=== PATIENT | female | born 1950 | race Hispanic/Latino ===

== ENCOUNTER 2024-07-07 20:53 | Inpatient (IN) | payer MEDICARE, OTHER ==
[2024-07-07 21:32] LABS: Acetaminophen Less than 10 mcg/mL (Less than 10); Alcohol Less than 10.0 mg/dL (Less than 10); Salicylate Less than 8.0 mg/dL (Less than 8.0)
[2024-07-07 21:37] LABS: Troponin I Less than 0.010 ng/mL (< 0.028)
[2024-07-07 21:38] LABS: #Basophils 0.03 10x3/uL (0.0-0.2); %Basophils 0.3 % (0.0-1.0); %Eosinophils 3.4 % (0.0-10.0); %Monocytes 6.2 % (0.0-10.0); %Neutrophils 72.2 % (42.0-75.0); Hematocrit 27.7 % (36.0-47.0); Mean Corpuscular HGB CONC 32.5 g/dL (32.0-36.0); Mean Corpuscular Hemoglobin 34.1 pg (27.0-31.0); Mean Corpuscular Volume 104.9 fL (78.0-98.0); Platelet Count 269 10x3/uL (130-400); RBC Distribution Width 13.1 % (11.5-14.5); Red Blood Cell (RBC) Count 2.64 mill/uL (4.20-5.40)
[2024-07-07 21:42] LABS: INR-International Normal Ratio 1.7
[2024-07-07 21:43] LABS: PTT 39.8 sec (22.9-36.1)
[2024-07-07 21:54] LABS: ALT (SGPT) 16 U/L (8-55); AST (SGOT) 31 U/L (5-34); Albumin 3.2 g/dL (3.4-4.8); Alkaline Phosphatase 122 U/L (40-110); Anion Gap 15 mmol/L (10-20); BUN (Urea Nitrogen) 16 mg/dL (9.8-20.1); Bilirubin, Total 0.7 mg/dL (0.2-1.2); Calc. Creatinine Clearance 0 mL/min (70-130); Calcium 9.1 mg/dL (7.8-10.44); Carbon Dioxide 27 mmol/L (23-31); Chloride 99 mmol/L (98-107); Estimated GFR 58; Globulin 3.1 g/dL (2.4-3.5); Glucose 145 mg/dL (83-110); Potassium 4.1 mmol/L (3.5-5.1); Protein, Total 6.3 g/dL (5.8-8.1); Sodium 137 mmol/L (136-145)
[2024-07-08 00:10] LABS: Bacteria/HPF 1+ HPF (None Seen); Bilirubin Negative (Negative); Blood, Urine Trace (Negative); CAUTI Indications for Culture Alt mental st,lethar; Clarity Turbid (Clear); Glucose, Urine (Dipstick) Normal (Negative); Ketone, Urine Negative (Negative); Leukocyte 500 Leu/uL (Negative); Nitrite Negative (Negative); Protein, Urine (Dipstick) 10 mg/dL (Neg-Trace); Renal Epithelial 0-3 HPF (None Seen); Specific Gravity, Urine 1.013 (1.002-1.036); Urobilinogen Normal mg/dL (Less than 2); WBC/HPF Greater than 50 HPF (0-3)
[2024-07-08 00:11] LABS: Urine Culture Reflex Yes Yes
[2024-07-08] MEDS ORDERED: cefTRIAXone (ROCEPHIN) 2 GM VIAL ONE (00:23)
[2024-07-08] MEDS ORDERED: Sodium Chloride 0.9% 100 ML ONE (00:23)
[2024-07-08] MEDS ORDERED: Glucagon 1 MG/ML KIT IM PRN (03:26)
[2024-07-08] MEDS ORDERED: Insulin Lispro 100 UNIT/ML 10 ML VIAL SC PRN ×2 (03:26)
[2024-07-08] MEDS ORDERED: Dextrose 50% Abboject 50 ML SYRINGE SLOW IVP PRN (03:26)
[2024-07-08] MEDS ORDERED: Dextrose 5% in Water 1,000 ML IV PRN (03:26)
[2024-07-08] MEDS ORDERED: Calcium Carbonate 500 MG ChewTAB PO PRN (03:36)
[2024-07-08] MEDS ORDERED: Polyethylene Glycol 3350 17 GM Packet PO PRN (03:36)
[2024-07-08] MEDS ORDERED: oxyCODONE 5 MG TAB PO PRN (03:36)
[2024-07-08] MEDS ORDERED: Trospium 20 MG TAB PO PRN (03:43)
[2024-07-08] MEDS: Acetaminophen 325 MG TAB PO SCH (06:07)
[2024-07-08 06:17] VITALS: BMI 31.8
[2024-07-08] MEDS: Cholecalciferol (Vitamin D3) 400 UNITS TAB PO SCH (08:40)
[2024-07-08] MEDS: Pioglitazone HCl 15 MG TAB PO SCH (08:40)
[2024-07-08] MEDS: Montelukast Sodium 10 mg Tablet PO SCH (08:41)
[2024-07-08] MEDS: Losartan 25 MG TAB PO SCH (08:41)
[2024-07-08] MEDS: Metoprolol Tartrate 25 MG TAB PO SCH (08:41)
[2024-07-08] MEDS: Famotidine 20 MG TAB PO SCH (08:42)
[2024-07-08] MEDS: Apixaban 5 MG TAB PO SCH (08:42)
[2024-07-08] MEDS: Amlodipine 5 MG TAB PO SCH (08:43)
[2024-07-08] MEDS ORDERED: Enoxaparin 40 MG (0.4 mL) SYRINGE SC SCH (09:00)
[2024-07-08] MEDS: Methocarbamol 500 MG TAB PO PRN (10:14)
[2024-07-08] MEDS: Bisacodyl 5 MG TAB PO PRN (10:14)
[2024-07-08] MEDS: Atorvastatin Calcium 10 MG TAB PO SCH (20:25)
[2024-07-09] MEDS ORDERED: cefTRIAXone\\ROCEPHIN 1 GM in Sodium Chloride 0.9% 100 ML IVPB SCH (00:15)
[2024-07-09] MEDS: Lactated Ringer's 1,000 ML IV SCH (00:55)
[2024-07-09 06:01] LABS: Thyroid Stimulating Hormone 127.0173 uIU/mL (0.35-4.94)
[2024-07-09 10:20] LABS: Free T4 (Free Thyroxine) Less than 0.42 ng/dL (0.70-1.48); T4 Less than 2.00 ug/dL (4.87-11.72)
[2024-07-09] MEDS: Levothyroxine Sodium 112 MCG TAB PO SCH (12:07)
[2024-07-09 13:14] VITALS: BMI 31.8
[2024-07-09] MEDS: Melatonin 3 MG TAB PO SCH (21:09)
[2024-07-10] MEDS: Levothyroxine Sodium 112 MCG TAB PO SCH (05:07)
[2024-07-10 05:10] LABS: #Basophils 0.04 10x3/uL (0.0-0.2); %Basophils 0.3 % (0.0-1.0); %Lymphocytes 16.4 % (21.0-51.0); %Monocytes 8.7 % (0.0-10.0); %Neutrophils 70.9 % (42.0-75.0); Hematocrit 27.2 % (36.0-47.0); Hemoglobin 9.1 g/dL (12.0-16.0); Mean Corpuscular HGB CONC 33.5 g/dL (32.0-36.0); Mean Corpuscular Hemoglobin 34.5 pg (27.0-31.0); Mean Platelet Volume 9.7 fL (7.4-10.4); Platelet Count 272 10x3/uL (130-400); RBC Distribution Width 12.9 % (11.5-14.5); Red Blood Cell (RBC) Count 2.64 mill/uL (4.20-5.40)
[2024-07-10 05:32] LABS: ALT (SGPT) 14 U/L (8-55); AST (SGOT) 30 U/L (5-34); Albumin 3.3 g/dL (3.4-4.8); Alkaline Phosphatase 133 U/L (40-110); Anion Gap 16 mmol/L (10-20); BUN (Urea Nitrogen) 11 mg/dL (9.8-20.1); Bilirubin, Total 0.7 mg/dL (0.2-1.2); Calc. Creatinine Clearance 66 mL/min (70-130); Calcium 9.2 mg/dL (7.8-10.44); Carbon Dioxide 26 mmol/L (23-31); Chloride 98 mmol/L (98-107); Estimated GFR 71; Globulin 3.4 g/dL (2.4-3.5); Glucose 110 mg/dL (83-110); Potassium 3.5 mmol/L (3.5-5.1); Protein, Total 6.7 g/dL (5.8-8.1); Sodium 136 mmol/L (136-145)
[2024-07-10] MEDS: Fluconazole 100 MG TAB PO SCH (13:01)
[2024-07-10 15:59] VITALS: BP 131/79; TEMP 97.3
[2024-07-14 08:36] LABS: Methylmalonic Acid 419 nmol/L (0-378)
== END 2024-07-10 16:20 | disposition home or self-care (01) | DRG 884 ==
LOC: ERS 20:53 → MSONC 07-08 02:36 → OBSVTOIN 07-08 15:46
PROVIDERS: ADMIT Student in an Organized Health Care Education/Training Program; ATTEND Student in an Organized Health Care Education/Training Program
DX: F03.918 Unspecified dementia, unspecified severity, with other behavioral disturbance (principal); F05 Delirium due to known physiological condition; N39.0 Urinary tract infection, site not specified; E11.9 Type 2 diabetes mellitus without complications; E78.5 Hyperlipidemia, unspecified; I10 Essential (primary) hypertension; I48.91 Unspecified atrial fibrillation; K21.9 Gastro-esophageal reflux disease without esophagitis; E03.9 Hypothyroidism, unspecified; Z66 Do not resuscitate; Z98.890 Other specified postprocedural states; Z88.8 Allergy status to other drugs, medicaments and biological substances; Z79.01 Long term (current) use of anticoagulants; Z79.4 Long term (current) use of insulin; Z79.899 Other long term (current) drug therapy
CPT/HCPCS: 36415; 36416; 51701; 70450; 71045; 72125; 80053; 80307; 81001; 82607; 83090; 83921; 84436; 84439; 84443; 84481; 84484; 85025; 85046; 85610; 85730; 87086; 93005; 96365; G0378; G0390; J0696; J7120